=== PATIENT | female | born 1975 | race Caucasian/White ===

== ENCOUNTER → 2016-05-13 | Outpatient (CLI) | payer BC ==
--- NOTE | 2016-05-13 12:56 | US ---
Venous Duplex Doppler Study of the Right Lower Extremity Clinical Indications: 41-year-old female who twisted her right ankle on May 07, 2016, with pers istent swelling. Rule out DVT. ICD 10 Diagnostic Code: M25.471. Technique: A high-frequency transducer was used for imaging and Doppler study of the deep veins of t he right leg from the upper calf to the groin. Pulsed Doppler and color Doppler were utilized, along with various maneuvers, to assess flow in the deep veins. Cursory evaluation of the left common femo ral vein was obtained for comparison purposes, and is normal. Comparison exam: None. Findings: The deep veins of the right groin, thigh, knee, and upper calf are well-displayed, and are normally compressible. Doppler flow patterns are unremarkable. There is no evidence of deep venous thrombosis. There is normal compression of the greater saphenous vein, without superficial thrombosi s. The popliteal fossa is unremarkable. Results were conveyed to the cellular phone mail of Dr. Nadine Waters, as requested. Impression: There is no sonographic evidence of deep or superficial vein thrombosis in the right leg . A test result has been communicated to a licensed care provider and documented in [employer] 12:51:06 P M, 05/13/2016, [employer] Message ID [id number].
== END ==
LOC: FIMAGING 11:36
PROVIDERS: ATTEND Orthopaedic Surgery
DX: M25.471 Effusion, right ankle (principal)